=== PATIENT | male | born 1985 | race Caucasian/White ===

== ENCOUNTER 2016-10-27 13:49 | Emergency (ER) | payer MEDICARE ==
[~2016-10-27] VITALS: Ht 180.3 cm; Wt 80.9 kg
[2016-10-27 14:10] VITALS: BP 113/74; PULSE 69; RESP 18; O2SAT 98
--- NOTE | 2016-10-27 14:50 | ED.REPORT ---
HPI-General Illness Date of Service Oct 27, 2016 ED Provider: Vince Anguiano PA-C Hermann is an otherwise healthy 31-year-old male patient with chief complaint of a laceration on his right hand. Patient states he cut the hand on a pair of pruners that he had this pants pocket. He is unsure of his tetanus status. Denies comorbidities such as diabetes, HIV, immunosuppression. Nursing Notes Stated Complaint: RIGHT HAND INJURY Chief Complaint: Laceration Nursing Notes Reviewed: Yes Allergies: Coded Allergies: No Known Allergies (Unverified , 02/19/16) General Time Seen by MD: 14:23 Chief Complaint Laceration Past Medical History Past Medical History -Anxiety -ADD/ADHD Reports: Depression Past Surgical History None Smoking History Current Every Day Smoker Social History Claims he has experimented with "every drug except heroin" Alcohol Use: Denies alcohol use Drug Use: Cocaine, Meth, THC Ambulatory Status Independent Review of Systems Negative unless stated otherwise in history of present illness Physical Exam General: Well appearing, well developed, well nourished, no acute distress. Right hand: 2 cm laceration over the palmar aspect of the distal fourth metacarpal, penetrating the dermis. This is well visualized, no foreign bodies noted. No evidence of damage to the tendon. Radial pulse 2+. Sensation and brisk capillary refill intact in distal phalanges. Full strength and range of motion at MCP, PIP and DIP joints. Head: Atraumatic, normocephalic. Eyes: No scleral icterus or injection. No discharge. Vision grossly intact. ENT: Voice clear, hearing grossly intact. Respiratory: No respiratory distress, no increased work of breathing. Speaks in complete sentences. Skin: Warm and dry. Neurological: Grossly nonfocal. Psychological: alert and oriented. Speech appropriate, linear and logical. Behavior appropriate. Vital Signs Vital Signs Date Time Temp Pulse Resp B/P Pulse Ox O2 Delivery O2 Flow Rate FiO2 10/27/16 16:01 37.1 66 18 109/81 98 10/27/16 14:10 37.3 69 18 113/74 98 Normal Procedures Laceration Management Consent / Setup / Site Prep: Consent from patient, Hand hygiene observed, Stand sterile technique Wound Length: 2 cm Local Anesthesia: Lidocaine w epi 2% Wound Preparation: Shurclens, Normal saline Irrigation: 250 cc Foreign Body Explore / Removal: Explored for foreign body # Sutures - Skin: 6 Repair Subcutaneous: Nylon (5-0) Closure Layers: 1 Suture Technique: Simple Post-Procedure / Complications: Antibiotic oint applied, Dressing applied, No complications, Condition improved, Tolerated procedure well, Patient stable Re-Eval/Medical Decision Med Decision/Clinical Course Otherwise healthy 31-year-old male presents with laceration of his right hand from a pair of pruners. Unsure of his tetanus status. Denies comorbidities. 2 cm laceration on the palmar aspect of the distal fourth metacarpal, there is well-visualized, negative foreign bodies or involvement of tendons. Full strength and range of motion, circulation and sensation. Anesthesia is obtained with 3 mL 2% lidocaine with epinephrine, wound is cleansed with skin cleanser, normal saline, closed with 6 interrupted nylon 5-0 sutures in one layer. Dress with antibiotic ointment and gauze. Provided Tdap. Patient denies comorbidities that would indicate use of antibiotics. Discussed wound care, follow-up. Advised regarding primary care follow-up, provided emergency return precautions. Patient verbalized understanding of, and consent to, the plan. Discharge & Departure Primary Impression: Laceration Disposition: Home Discharge Condition All VS Reviewed: Yes Condition: Stable Patient Instructions: Laceration (ED) Additional Instructions: Evaluation in the emergency department for a laceration. This appears to be a clean wound, with no damage to the joint capsule or tendons. I see no indication for antibiotics at this time. We have updated your tetanus shot. We have cleaned, sutured and dressed the wound with antibiotic ointment and gauze. Please leave this dressing on and dry for the next 24 hours. After that you can remove the dressing, clean with soap and water and then reapply antibiotic ointment and gauze or Band-Aid. Please do not submerge the wound as in washing dishes, swimming or soaking in a tub until you have the sutures removed. The pain is best treated with 400 mg of ibuprofen (Advil, Motrin) every 6 hours , or 1000 mg of acetaminophen (Tylenol) every 6 hours. These drugs can be taken at the same time for more severe pain. Be vigilant for signs of infection. While a small amount of redness, tenderness and clear or pink drainage is normal, any increasing pain, redness, swelling or the appearance of pus suggests infection. More severe infection as suggested by symptoms such as fever, chills, feeling ill, racing heart. Please return to emergency Department if you notice signs of infection. Follow-up with your primary care provider or return to the emergency department in 7 days for suture removal. Referrals: Jaskaran Todd DO (PCP) EDSupervising Provider for APC: Jann Spears MD copies to: Jaskaran Todd Seth PA-C Oct 27, 2016 14:50
[2016-10-27] MEDS ORDERED: TdaP Vaccine 0.5 mL Inj IM ONE (15:05)
[2016-10-27 16:01] VITALS: BP 109/81; PULSE 66; RESP 18; O2SAT 98
== END 2016-10-27 16:01 | disposition home or self-care (01) ==
LOC: SED 13:49
DX: S61.411A Laceration without foreign body of right hand, initial encounter (principal); W26.8XXA Contact with other sharp object(s), not elsewhere classified, initial encounter; Y93.89 Activity, other specified; Y99.8 Other external cause status; F12.10 Cannabis abuse, uncomplicated; F17.200 Nicotine dependence, unspecified, uncomplicated; Z23 Encounter for immunization

== ENCOUNTER 2016-11-23 19:48 | Emergency (ER) | payer MEDICARE ==
[~2016-11-23] VITALS: Ht 180.3 cm; Wt 77.3 kg
[2016-11-23 20:05] VITALS: BP 121/83; PULSE 89; RESP 18; O2SAT 94
[2016-11-23] MEDS ORDERED: LORazepam 2 mg Tablet PO ONE (20:30)
[2016-11-23] MEDS ORDERED: DIVA500T14 PO ×2 (20:54→21:01)
--- NOTE | 2016-11-23 20:59 | ED.REPORT ---
HPI-Psychiatric Illness Date of Service Nov 23, 2016 ED Provider: Kiran Barnes MD Patient is a 31 year old male with a history of schizophrenia, depression and anxiety who presents to the ED due to suicidal ideations. The patient reports that he is "hopeless" and "undeserving of life". He reports that when he woke up this morning and walked his dog, a lady yelled at him "to get help pyscho". Patient also reports that his dad gave him attitude earlier after he asked his dad to be quiet. He states that these outside stresses are making him feel like "a bad person". Patient was prescribed medication previously by his primary care physician and has been unable to take it because he can't afford to buy the medication. The patient states he does not want to be here because there is nothing we can do to help him. Patient reports previous overdose attempt with Adderall and cutting. Nursing Notes Stated Complaint: MENTAL EVAL Chief Complaint: Psychiatric Complaint Nursing Notes Reviewed: Yes Allergies: Coded Allergies: No Known Allergies (Unverified , 11/23/16) Scheduled Acyclovir (Acyclovir) 400 Mg Tablet 400 MG PO TID Dextroamphetamine/Amphetamine ER (Dextroamphetamine/Amphetamine ER) 30 Mg Capsule 30 MG PO DAILY Divalproex ER (Divalproex ER) 500 Mg Tab.er.24h 500 MG PO QAM Divalproex ER (Divalproex ER) 500 Mg Tab.er.24h 1,500 MG PO HS *DAILY DOSING ONLY* Swallowed whole without chewing to avoid local irritation of the mouth and throat. Mirtazapine (Mirtazapine) 30 Mg Tablet 30 MG PO HS Trazodone (Trazodone) 100 Mg Tablet 100 MG PO HS Venlafaxine ER (Venlafaxine ER) 150 Mg Cap.er.24h 150 MG PO DAILY General Time Seen by MD: 20:28 Chief Complaint Suicidal ideation Hx Obtained From: Patient Arrived By: Walk-in Onset Occurred: 5 - 8 hours ago Context of Onset: Problem with parent Recent Healthcare: Recent doctor visit Similar Sx Previous: Yes Risk-Psychiatric Illness Suicide Risk Stratification Suicide Risk Factors - Adult: : Previous attempt: Prior psych admissionNo: Alcohol use, Substance abuse RF Statements: Risk factors reviewed Past Medical History Past Medical History Anxiety ADD/ADHD schizophrenia general psychosis Reports: Depression Past Surgical History None Smoking History Current Every Day Smoker Social History Claims he has experimented with "every drug except heroin" Alcohol Use: Denies alcohol use Drug Use: In recovery (hasn't used in a few months), Cocaine, Meth, THC ( reports he's trying to quit) Ambulatory Status Independent Review of Systems Psychiatric: Reports: Anxiety, Depression, Stress, Suicidal ideation, Denies: Hallucinations, auditory, Hallucinations, visual, Homicidal ideation Complete sys rev & neg: except as marked. Physical Exam Initial Vital Signs Vital Signs (First) Date Time Temp Pulse Resp B/P Pulse Ox O2 Delivery O2 Flow Rate FiO2 11/23/16 20:05 36.8 89 18 121/83 94 Room Air Initial VS: Reviewed General/Constitutional: Awake, Alert Neurologic: Oriented X3, Speech NL, No motor deficits, No sensory deficits Psychiatric: Not homicidal, No hallucinations, Judgment/insight NL Abnormal Mood/Affect: Positive: Anxious, Depressed, Flat affect, Hopeless Abnormal Thinking / Perception: Positive: Suicidal, no plan Head / Eyes: Atraumatic, Normocephalic, EOMI Interpretation & Diagnostics Lab Results Interpretation Test 11/23/16 21:18 Hold Urine Received (Received) Lab Results Interpretation: Urine Tox: positive for THC, PCP and Amphetamines Breathalyzer: 0 Re-Eval/Medical Decision Summary of Info: lorazepam 2mg PO x1 and am meds given Re-Evaluation/Progress #1: Time of Eval: 22:10 Re-Evaluation/Progress Note: Patient is less agitated and states feeling better after the medication. Re-Evaluation/Progress #2: Time of Eval: 23:17 Re-Evaluation/Progress Note: service worker helper recommends additional assessment in the morning and gathering more information from the father. Re-Evaluation/Progress #3: Time of Eval: 23:37 Re-Evaluation/Progress Note: Patient is requesting evening medications. Plan to order them. Discharge & Departure Shift Change Sign-Out Patient Care Transferred: Yes Discussed Complaint(s): Yes Additonal Information: to Dr Guallpa at midnight Discharge Condition All VS Reviewed: Yes Condition: Stable Referrals: [facility] (PCP) Care Transferred to: Dr. Valles Care Transferred at: 23:59 Scribe Attestation Portions of this note were transcribed by Lelo Stevens. I, Dr. Barnes personally performed the history, physical exam and medical decision-making; I reviewed and confirmed the accuracy of the information in the transcribed note. Signed by: Dom Porras, 11/23/16 copies to: [facility] Kiran Barnes MD Nov 23, 2016 20:59 Tressa Stevens Nov 23, 2016 21:04
[2016-11-23] MEDS ORDERED: AMPH30CA PO (21:01)
[2016-11-23] MEDS ORDERED: MIRT30TA6 PO (21:01)
[2016-11-23] MEDS ORDERED: ACYC400T2 PO (21:01)
[2016-11-23] MEDS ORDERED: TRAZ-118 PO (21:01)
[2016-11-23] MEDS ORDERED: VENL150C98 PO (21:01)
[2016-11-23] MEDS ORDERED: Divalproex (QD) 500 mg ER24 Tablet PO ONE (23:45)
[2016-11-23] MEDS ORDERED: Acyclovir 400 mg Tablet PO ONE (23:45)
[2016-11-23] MEDS ORDERED: Venlafaxine XR 75 mg ER24 Capsule PO ONE (23:50)
[2016-11-24 06:15] VITALS: BP 104/69; PULSE 78; RESP 16; O2SAT 92
[2016-11-24 10:07] VITALS: BP 94/61; PULSE 77; RESP 18; O2SAT 96
[2016-11-24] MEDS ORDERED: LORazepam 2 mg Tablet PO ONE (10:10)
[2016-11-24] MEDS ORDERED: VENL75CA95 PO (10:16)
[2016-11-24 11:23] VITALS: BP 94/61; PULSE 77; RESP 18; O2SAT 96
== END 2016-11-24 11:20 | disposition home or self-care (01) ==
LOC: SED 19:48
DX: R45.851 Suicidal ideations (principal); F12.10 Cannabis abuse, uncomplicated; F16.10 Hallucinogen abuse, uncomplicated; F15.20 Other stimulant dependence, uncomplicated; F32.9 Major depressive disorder, single episode, unspecified; F41.9 Anxiety disorder, unspecified; F20.9 Schizophrenia, unspecified; F17.200 Nicotine dependence, unspecified, uncomplicated; Z91.19 Patient's noncompliance with other medical treatment and regimen

== ENCOUNTER 2016-12-09 09:46 | Emergency (ER) | payer MEDICARE ==
[~2016-12-09] VITALS: Ht 180.3 cm; Wt 72.7 kg
[~2016-12-09 09:46] MED LIST: ACYC400T2 PO; AMPH30CA PO; DIVA500T14 PO; MIRT30TA6 PO; TRAZ-118 PO; VENL150C98 PO; VENL75CA95 PO
[2016-12-09 09:52] VITALS: BP 121/82; PULSE 96; RESP 18; O2SAT 99
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
--- NOTE | 2016-12-09 13:40 | DRSVH ---
PROCEDURE: CT BRAIN WITHOUT CONTRAST ([id number]) INDICATIONS: 31-year-old male with altered mental status. TECHNIQUE: Noncontrast 4.5 mm thick angled axial sections acquired from the foramen magnum to the vertex, with c oronal reformats. COMPARISON: None. FINDINGS: Image quality: Excellent. CSF spaces: Basal cisterns are patent. No extra-axial fluid collections. Ventricles are normal in size and shape. Brain: No midline shift. No intracranial masses or hemorrhage. Rodríguez-white matter interface is norm al. Skull and face: Calvarium and visualized facial bones are intact, without suspicious lesions. Sinuses: Visualized sinuses and mastoids are clear. IMPRESSION: No acute intracranial abnormalities. Dictated by: Brent Lopez M.D. on 12/09/2016 at 13:38 Approved by: Brent Lopez M.D. on 12/09/2016 at 13:39
[2016-12-10] MEDS ORDERED: DOXY100T2 PO (13:48)
== END 2016-12-09 14:09 | disposition home or self-care (01) ==
LOC: SED 09:46
DX: F32.9 Major depressive disorder, single episode, unspecified (principal); F20.9 Schizophrenia, unspecified; F41.9 Anxiety disorder, unspecified; F17.200 Nicotine dependence, unspecified, uncomplicated; Z87.820 Personal history of traumatic brain injury

== ENCOUNTER 2016-12-10 12:59 | Emergency (ER) | payer MEDICARE ==
[~2016-12-10] VITALS: Ht 180.3 cm; Wt 77.3 kg
[2016-12-10 13:04] VITALS: BP 108/68; PULSE 111; RESP 20; O2SAT 97
--- NOTE | 2016-12-10 13:08 | ED.REPORT ---
HPI-Trauma Multiple Date of Service Dec 10, 2016 ED Provider: Fernie Vick MD Hermann is a 31-year-old male with a history of schizophrenia and substance abuse presents emergency Department with a chief complaint of right testicular pain. Patient reports a 2 week history of pain in his right testicle radiating to his lower abdomen and upper inner right thigh. Admits to methamphetamine use as recently as a week ago as well as risky sexual activity. Reports a history of genital herpes. He denies trauma, dysuria, penile discharge, lesions , masses, fever, shaking chills, malaise, vomiting, diarrhea, melena, hematochezia. Nursing Notes Stated Complaint: HEAD INJURY Chief Complaint: General Complaint Nursing Notes Reviewed: Yes Allergies: Coded Allergies: No Known Allergies (Unverified , 12/10/16) Scheduled Acyclovir (Acyclovir) 400 Mg Tablet 400 MG PO TID Dextroamphetamine/Amphetamine ER (Dextroamphetamine/Amphetamine ER) 30 Mg Capsule 30 MG PO DAILY Divalproex ER (Divalproex ER) 500 Mg Tab.er.24h 500 MG PO QAM Divalproex ER (Divalproex ER) 500 Mg Tab.er.24h 1,500 MG PO HS *DAILY DOSING ONLY* Swallowed whole without chewing to avoid local irritation of the mouth and throat. Doxycycline Hyclate (Doxycycline Hyclate) 100 Mg Tablet 100 MG PO BID Mirtazapine (Mirtazapine) 30 Mg Tablet 30 MG PO HS Trazodone (Trazodone) 100 Mg Tablet 100 MG PO HS Venlafaxine ER (Venlafaxine ER) 150 Mg Cap.er.24h 150 MG PO DAILY Venlafaxine ER (Venlafaxine ER) 75 Mg Cap.er.24h 75 MG PO DAILY Combine with the 150 mg extended release dose for a total dose of 225 mg daily General Time Seen by Provider: 13:07 Chief Complaint Other (testicular pain) Past Medical History Past Medical History Anxiety ADD/ADHD schizophrenia general psychosis Reports: Depression Past Surgical History None Smoking History Current Every Day Smoker Social History Claims he has experimented with "every drug except heroin" Alcohol Use: Denies alcohol use Drug Use: In recovery, Cocaine, Meth, THC Ambulatory Status Independent Review of Systems Review of Systems Note: Negative unless stated otherwise in history of present illness Physical Exam General: Well appearing, well developed, well nourished, no acute distress. Mild psychomotor agitation. Genitourinary: Normal circumcised penis without lesions, tenderness or discharge. Scrotum appears mildly edematous with minimal redness and no heat. Minimal tenderness. Bilateral testicles are normal size, nontender without masses, epididymis bilaterally are nontender. No hernia noted. Right thigh: Nontender, negative redness, swelling or heat. Head: Atraumatic, normocephalic. Eyes: No scleral icterus or injection. No discharge. Vision grossly intact. ENT: Voice clear, hearing grossly intact. Respiratory: Regular rate and rhythm. Breath sounds present, clear to auscultation and equal bilaterally. No respiratory distress. No increased work of breathing, speaks in complete sentences. Cardiovascular: Tachycardic rate and regular rhythm, without murmur, gallop or rub. No pedal edema. Gastrointestinal: Abdomen flat and non-tender without guarding or rebound. Bowel sounds normoactive. Skin: Warm and dry. Neurological: Grossly nonfocal. Psychological: Alert and oriented. Speech appropriate, linear and logical. Behavior appropriate. Initial Vital Signs Vital Signs (First) Date Time Temp Pulse Resp B/P Pulse Ox O2 Delivery O2 Flow Rate FiO2 12/10/16 13:04 37.6 111 20 108/68 97 Room Air Tachycardia Re-Eval/Medical Decision Med Decision/Clinical Course 31-year-old male with a history of psychosis and methamphetamine use presents to emergency department with chief complaint of right testicle pain lasting approximately 2 weeks. Admits risky sexual activity. Radiates to the lower abdomen as well as upper right thigh. Denies other symptoms. Physical examination reveals an edematous scrotum with minimal redness and negligible heat. Testes and epididymis are normal size, nontender without masses. Negative lesions or penile discharge. No hernia noted. Negative abdominal tenderness. Mild tachycardia is noted as well as mild psychomotor agitation. Patient is afebrile and nontoxic appearing. I discussed the case with Dr. yusuf Olvera who met with and examined the patient. We do not believe this is suggestive of Laquita's gangrene, testicular torsion, abscess, cellulitis. Given history of some concern for epididymitis and will treat as such. Dr. yusuf Olvera recommends course of antibiotics, 1 g of Rocephin is given in the emergency department and doxycycline prescribed. Advised regarding [id number] analgesia. Patient reports that he discontinued methamphetamine use 1 week ago and does not wish to speak to hospital social worker regarding cessation. Advised regarding primary care follow-up, provided emergency return precautions. Patient verbalized understanding of, and consent to, the plan. Tachycardia is noted however the patient admits to history of methamphetamine abuse, exhibits mild psychomotor agitation and does not appear toxic. I discussed this with Dr. Vick and we believe he is stable and safe to be discharged. Stated complaint of head injury in this chart appears to be a clerical error. Discharge & Departure Impression: Primary Impression: Testicular pain, right Disposition: Home Discharge Condition All VS Reviewed: Yes Condition: Stable Additional Instructions: Evaluation in the emergency department for testicular pain includes interview and physical examination both of which are reassuring that this is not likely caused by an immediately dangerous condition. I believe you are stable and safe to go home. We will treat this with a shot of antibiotics followed by a 10 day course of doxycycline 100 mg twice a day. The pain is best treated with 400 mg of ibuprofen (Advil, Motrin) every 6 hours , or 1000 mg of acetaminophen (Tylenol) every 6 hours. These drugs can be taken at the same time for more severe pain. Follow-up with your primary care provider in 4-5 days to be sure this is progressing as expected. Returns to emergency department for any new or worsening symptoms including increasing pain, fever, feeling ill. Referrals: [facility] (PCP) EDSupervising Provider for APC: Fernie Vick MD Attending Statement \\Attending attestation: I saw this patient in conjunction with Vince Anguiano PA-C. I was present for all harry portions of the history taking and physical examination. I agree with the workup, evaluation, treatment and disposition. Fernie Yusuf MD, MD Dec 10, 2016 13:08 Vince Anguiano PA-C Dec 10, 2016 13:48
[2016-12-10] MEDS ORDERED: cefTRIAXone Inj 250 MG, Lidocaine PF 1% Inj 0.9 ML in Syringe 1 EACH IM ONE (13:45)
[2016-12-10] MEDS ORDERED: DOXY100T2 PO (13:48)
[2016-12-10] MEDS ORDERED: cefTRIAXone 1,000 mg Inj IM ONE (14:00)
[2016-12-10 15:02] VITALS: BP 122/64; PULSE 66
== END 2016-12-10 15:03 | disposition home or self-care (01) ==
LOC: SED 12:59
DX: N50.811 Right testicular pain (principal); F90.9 Attention-deficit hyperactivity disorder, unspecified type; F41.8 Other specified anxiety disorders; F20.9 Schizophrenia, unspecified; F17.200 Nicotine dependence, unspecified, uncomplicated
CPT/HCPCS: 96372; 99283; J0696